=== PATIENT | male | born 1950 | race African-American/Black ===

== ENCOUNTER 2018-01-30 21:19 | Inpatient (IN) ==
[2018-01-30] MEDS ORDERED: ASPIRIN 325 MG TABLET PO STA (21:56)
[2018-01-30 22:02] LABS: Basophils # 0.1 10*3/uL (0.0-0.2); Basophils % 0.6 % (0.0-0.8); Eosinophils # 0.4 10*3/uL (0.0-0.87); Eosinophils % 5.1 % (0.00-10.9); Hematocrit 33.8 VOL% (42.0-52.0); Hemoglobin 11.4 GM/DL (14.0-18.0); Immature Granulocytes % 0.2 %; Immature Granulocytes Absolute 0.02 #; Lymphocytes # 1.8 10*3/uL (1.4-4.0); Lymphocytes % 21.5 % (21.2-54.2); Mean Corpuscular HGB Conc 33.7 GM/DL (32-36); Mean Corpuscular Hemoglobin 33 PG (27-34); Mean Corpuscular Volume 98.3 FL (87-102); Mean Platelet Volume 11.1 FL (9.6-12.0); Monocytes # 1.1 10*3/uL (0.11-0.8); Monocytes % 12.9 % (1.7-12.7); Neutrophils # 4.9 10*3/uL (1.4-7.4); Neutrophils % 59.7 % (38.7-73.9); Platelet Count 172 T/CUMM (130-400); Red Blood Count 3.44 MC/CUMM (3.8-5.5); Red Cell Distribution Width 16.1 % (9.3-17.3); White Blood Count 8.2 T/CUMM (4-12)
[2018-01-30 22:17] LABS: Albumin 3.3 G/DL (3.4-5.0); Bilirubin,Total 0.6 MG/DL (0.2-1.0); Calcium 7.9 MG/DL (8.5-10.1); Osmolality,Calculated 274.7 MOS/KG (273-304); Potassium 3.7 MMOL/L (3.5-5.1); Total Protein 7.9 G/DL (6.4-8.3)
[2018-01-31 06:51] LABS: Risk Ratio 4.47; VLDL CHOLESTEROL 27.4 MG/DL
[2018-01-31] MEDS: ENOXAPARIN 30 MG/0.3 ML SYRINGE SUBCUT SCH (09:15)
[2018-01-31] MEDS: METOPROLOL TARTRATE 25 MG TABLET PO SCH ×2 (17:12→21:28)
[2018-01-31] MEDS: ROSUVASTATIN 10 MG TABLET PO SCH (21:28)
[2018-02-01] MEDS: ONDANSETRON 4 MG/2 ML VIAL IV PRN (08:00)
[2018-02-01] MEDS ORDERED: ASPIRIN EC 81 MG TABLET PO SCH (09:00)
[2018-02-01] MEDS: HEPARIN DRIP 25,000 UNITS/500 ML PREMIX IV SCH ×2 (10:14→23:40)
[2018-02-01 12:47] LABS: Basophils % 0.5 % (0.0-0.8); Eosinophils # 0.3 10*3/uL (0.0-0.87); Eosinophils % 3.3 % (0.00-10.9); Hematocrit 32.6 VOL% (42.0-52.0); Immature Granulocytes % 0.2 %; Immature Granulocytes Absolute 0.02 #; Lymphocytes # 1.8 10*3/uL (1.4-4.0); Lymphocytes % 21.4 % (21.2-54.2); Mean Corpuscular HGB Conc 33.7 GM/DL (32-36); Mean Corpuscular Hemoglobin 33 PG (27-34); Mean Corpuscular Volume 97.6 FL (87-102); Mean Platelet Volume 10.8 FL (9.6-12.0); Monocytes # 0.8 10*3/uL (0.11-0.8); Monocytes % 9.6 % (1.7-12.7); Neutrophils # 5.4 10*3/uL (1.4-7.4); Platelet Count 176 T/CUMM (130-400); Red Blood Count 3.34 MC/CUMM (3.8-5.5); Red Cell Distribution Width 15.7 % (9.3-17.3); White Blood Count 8.2 T/CUMM (4-12)
[2018-02-01 12:59] LABS: PT Patient Result 10.7 SECS
[2018-02-01 13:06] LABS: Calcium 7.5 MG/DL (8.5-10.1); Osmolality,Calculated 273.8 MOS/KG (273-304); Potassium 3.8 MMOL/L (3.5-5.1)
[2018-02-01] MEDS: METOPROLOL TARTRATE 25 MG TABLET PO SCH ×2 (15:46→20:01)
[2018-02-01] MEDS: ENOXAPARIN 30 MG/0.3 ML SYRINGE SUBCUT SCH (15:52)
[2018-02-01] MEDS: ACETAMINOPHEN 325 MG TABLET PO PRN (16:35)
[2018-02-01] MEDS: WARFARIN 5 MG TABLET PO SCH (18:18)
[2018-02-01] MEDS: ROSUVASTATIN 10 MG TABLET PO SCH (20:02)
[2018-02-01] MEDS: CALCIUM CARBONATE CHEW 500 MG TABLET PO PRN (21:10)
[2018-02-01] MEDS: ZALEPLON 5 MG CAPSULE PO PRN (23:32)
[2018-02-02] MEDS: ONDANSETRON 4 MG/2 ML VIAL IV PRN ×3 (05:53→22:45)
[2018-02-02] MEDS: METOPROLOL TARTRATE 25 MG TABLET PO SCH ×2 (09:59→20:26)
[2018-02-02] MEDS: HEPARIN DRIP 25,000 UNITS/500 ML PREMIX IV SCH (14:40)
[2018-02-02] MEDS: WARFARIN 5 MG TABLET PO SCH (18:19)
[2018-02-02] MEDS: ZALEPLON 5 MG CAPSULE PO PRN (20:25)
[2018-02-02] MEDS: ROSUVASTATIN 10 MG TABLET PO SCH (20:27)
[2018-02-03] MEDS: ACETAMINOPHEN 325 MG TABLET PO PRN (00:33)
[2018-02-03] MEDS: ONDANSETRON 4 MG/2 ML VIAL IV PRN ×2 (05:01→15:37)
[2018-02-03 05:52] LABS: PT Patient Result 10.9 SECS
[2018-02-03] MEDS ORDERED: WARFARIN 5 MG TABLET PO SCH (07:16)
[2018-02-03] MEDS: HEPARIN DRIP 25,000 UNITS/500 ML PREMIX IV SCH (09:30)
[2018-02-03] MEDS: METOPROLOL TARTRATE 25 MG TABLET PO SCH ×2 (09:34→20:51)
[2018-02-03] MEDS: ROSUVASTATIN 10 MG TABLET PO SCH (20:51)
[2018-02-03] MEDS: ZALEPLON 5 MG CAPSULE PO PRN (20:51)
[2018-02-03] MEDS: CALCIUM CARBONATE CHEW 500 MG TABLET PO PRN (20:51)
[2018-02-04] MEDS: ONDANSETRON 4 MG/2 ML VIAL IV PRN ×3 (00:44→16:32)
[2018-02-04] MEDS: HEPARIN DRIP 25,000 UNITS/500 ML PREMIX IV SCH ×2 (01:11→11:49)
[2018-02-04 06:09] LABS: INR 1.1; PT Patient Result 11.8 SECS
[2018-02-04] MEDS: METOPROLOL TARTRATE 25 MG TABLET PO SCH (09:39)
[2018-02-04] MEDS: CALCIUM CARBONATE CHEW 500 MG TABLET PO PRN (14:00)
[2018-02-04 15:49] VITALS: BP 127/62
== END 2018-02-04 18:00 | disposition left against medical advice (07) | DRG 302 ==
LOC: EDBD → EDUNIT# → N.ED 21:19 → N.EDINP 01-31 00:06 → SUATTDRO 01-31 00:06 → N.ICU 01-31 02:31 → N.TELES 01-31 18:41
PROVIDERS: ADMIT Internal Medicine Infectious Disease; ATTEND Internal Medicine